=== PATIENT | female | born 1980 | race Hispanic/Latino ===

== ENCOUNTER 2024-06-20 17:50 | Emergency (ER) | payer BC ==
[2024-06-20] MEDS ORDERED: DONNATAL/LIDOCAINE/MAALOX 30 ML SUSP PO ONE (18:15)
[2024-06-20] MEDS: ONDANSETRON HCL INJ 2MG/ML 2ML 2 MG/ML VIAL IV STA (18:29)
[2024-06-20] MEDS: Morphine 4mg INJECTION 4 MG/ML INJ IV ONE (18:30)
[2024-06-20] MEDS: SODIUM CHLORIDE 0.9% 1000ML 1,000 ML IV SCH (18:30)
[2024-06-20] MEDS ORDERED: BELLADONNA ALK/PHENOBARBITAL 5 ML UDC ONE (18:34)
[2024-06-20] MEDS ORDERED: MAGNESIUM/ALUMINUM/SIMETHICONE 30 ML UDC ONE (18:35)
[2024-06-20] MEDS: BELLADONNA ALK/PHENOBARBITAL 5 ML UDC PO ONE (18:39)
[2024-06-20] MEDS: MAGNESIUM/ALUMINUM/SIMETHICONE 30 ML UDC PO ONE (18:39)
[2024-06-20] MEDS: LIDOCAINE VISC 2% SOLN 15 ML UDC PO ONE (18:39)
[2024-06-20] MEDS ORDERED: ONDANSETRON ODT4 MG PO (21:26)
[2024-06-20 22:51] VITALS: BP 119/58; PULSE 71; RESP 18; TEMP 98.3; O2SAT 99
== END 2024-06-20 21:39 | disposition home or self-care (01) ==
LOC: FSED 17:56
DX: R10.32 Left lower quadrant pain (principal); R10.31 Right lower quadrant pain; K80.20 Calculus of gallbladder without cholecystitis without obstruction; E86.0 Dehydration; R11.0 Nausea; R14.2 Eructation
CPT/HCPCS: 74176; 76705; 80048; 80076; 81003; 81025; 85025; 96374; 96375; 99284; J2270; J2405; J7030